=== PATIENT | female | born 1980 | race Asian ===

== ENCOUNTER 2018-12-03 18:08 | Emergency (ER) | payer OTHER ==
[~2018-12-03] VITALS: Ht 160 cm; Wt 78.8 kg
[~2018-12-03 18:08] MED LIST: CYCL10TA7 PO; NAPR-985 PO
[2018-12-03 18:11] VITALS: Ht 160 cm; Wt 78.8 kg
[2018-12-03] MEDS ORDERED: KETOROLAC 30 MG INJ IM STA (19:22)
[2018-12-03] MEDS ORDERED: DEXAMETHASONE 10 MG/ML 1 ML INJ IM ONE (19:30)
[2018-12-03] MEDS ORDERED: DIAZEPAM 5 MG TAB PO ONE (19:30)
[2018-12-03 20:17] VITALS: BP 97/56; PULSE 58; RESP 18
--- NOTE | 2018-12-03 20:58 | ERD ---
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 She reports 10/10 pain wh ich is constant and worse with movement. She took Tylenol thousand milligrams and ibuprofen 200 mg with some relief. She denies any loss of bowel or bladder function, fevers, chills, lower extremity weakness, saddle anesthesia, or other symptoms at this time. ROS All systems reviewed and are negative except as per history of present illness. Medications Home Meds Active Scripts Naproxen* (Naprosyn*) 500 Mg Tablet, 500 MG PO BID PRN for PAIN AND/OR INF LAMMATION, #30 TAB Prov:GREGORY HUMPHREY PA-C 12/03/18 Cyclobenzaprine Hcl* (Cyclobenzaprine Hcl*) 10 Mg Tablet, 10 MG PO TID, #15 TAB Prov:GREGORY HUMPHREY PA-C 12/03/18 Allergies Allergies: Coded Allergies: No Known Allergy (Unverified , 12/03/18) PMhx/Soc Medical and Surgical Hx: pt denies Medical Hx, pt denies Surgical Hx Hx Alcohol Use: No Hx Substance Use: No Hx Tobacco Use: No Smoking Status: Never smoker FmHx Family History: No diabetes Physical Exam Vitals Vital Signs Date Temp Pulse Resp B/P (MAP) Pulse Ox O2 O2 Flow FiO2 Time Delivery Rate 12/03/18 98.4 58 18 97/56 (70) 99 20:17 12/03/18 98.4 71 18 104/60 99 18:11 (75) Physical Exam Const: No acute distress Head: Atraumatic Eyes: Normal Conjunctiva ENT: Normal External Ears, Nose and Mouth. Neck: Full range of motion. No meningismus. Resp: Clear to auscultation bilaterally Cardio: Regular rate and rhythm, no murmurs Abd: Soft, non tender, non distended. Normal bowel sounds Back Exam: Skin: No bruising or rash Compartments: Soft Motor: Normal flexion and extension of bilateral hip/knee/ankle/foot Sensation: Intact to light touch throughout Bones: No midline TTP Testing: Positive straight leg raise test on the left. Skin: No petechiae or rashes Ext: No cyanosis, or edema Neur: Awake and alert Psych: Normal Mood and Affect Results 24 hrs Laboratory Tests Test 12/03/18 19:03 Bedside Urine pH (LAB) 6.0 Bedside Urine Protein (LAB) Negative Bedside Urine Glucose (UA) Negative Bedside Urine Ketones (LAB) Negative Bedside Urine Blood Negative Bedside Urine Nitrite (LAB) Negative Bedside Urine Leukocyte Esterase (L Negative POC Beta HCG, Qualitative NEGATIVE Current Medications Medications Dose Sig/Angus Start Time Status Last (Trade) Ordered Route PRN Stop Time Admin Dose Reason Admin Ketorolac 30 mg ONCE STAT 12/03/18 DC 12/03/18 Tromethamine IM 19:22 12/03/18 19:36 (Toradol) 19:23 10 mg ONCE ONCE 12/03/18 DC 12/03/18 Dexamethasone IM 19:30 12/03/18 19:35 (Decadron) 19:31 Diazepam 5 mg ONCE ONCE 12/03/18 DC 12/03/18 (Valium) PO 19:30 12/03/18 19:36 19:31 Procedures/MDM 38-year-old female presents the emergency department with signs and symptoms most consistent with lumbar strain with sciatica. Patient was administered Decadron, Toradol, and Valium with significant improvement of her symptoms. Patient's musculoskeletal symptoms have stabilized while they have been evaluated in the department and are appropriate for outpatient work up. No evidence of cauda equina, cord compression, infiltrative, or infectious etiology. No evidence of life-threatening pathology at time of discharge. Pt/family in agreement with discharge plan/diagnosis. Pt/family advised to return immediately with any new or worsening symptoms. Follow-up with primary care physician within the next 1-2 days. Departure Diagnosis: Primary Impression: Lumbar strain Encounter type: initial encounter Qualified Codes: S39.012A - Strain of muscle, fascia and tendon of lower back, initial encounter Condition: Fair Patient Instructions: Causes of Lumbar (Low Back) Pain Referrals: [facility] YOU HAVE RECEIVED A MEDICAL SCREENING EXAM AND THE RESULTS INDICATE THAT YOU DO NOT HAVE A CONDITION THAT REQUIRES URGENT TREATMENT IN THE EMERGENCY DEPARTMENT. FURTHER EVALUATION AND TREATMENT OF YOUR CONDITION CAN WAIT UNTIL YOU ARE SEEN IN YOUR DOCTORS OFFICE WITHIN THE NEXT 1-2 DAYS. IT IS YOUR RESPONSIBILITY TO MAKE AN APPOINTMENT FOR FOLOW-UP CARE. IF YOU HAVE A PRIMARY DOCTOR --you should call your primary doctor and schedule an appointment IF YOU DO NOT HAVE A PRIMARY DOCTOR YOU CAN CALL OUR PHYSICIAN REFERRAL HOTLINE AT IF YOU CAN NOT AFFORD TO SEE A PHYSICIAN YOU CAN CHOSE FROM THE FOLLOWING C [facility] [address] [facility]. [facility] [address] [facility] [facility] [address] [facility] [address] [facility] [facility] [address] [facility]. [facility] [address] Additional Instructions: Call your primary care doctor TOMORROW for an appointment during the next 1-2 days.See the doctor sooner or return here if your condition worsens before your appointment time. GREGORY HUMPHREY PA-C Dec 03, 2018 20:58
== END 2018-12-03 20:18 | disposition home or self-care (01) ==
LOC: FTE 18:08
DX: S39.012A Strain of muscle, fascia and tendon of lower back, initial encounter (principal); X50.0XXA Overexertion from strenuous movement or load, initial encounter; Y92.9 Unspecified place or not applicable
CPT/HCPCS: 81003; 81025; 96372; J1100; J1885; Z7502; Z7610